=== PATIENT | male | born 1970 | race Caucasian/White ===

== ENCOUNTER 2016-09-03 08:10 | Day surgery (SDC) | payer OTHER ==
[2016-08-30 15:36] VITALS: BMI 30.5
[~2016-09-03 08:10] MED LIST: LACTATED RINGERS 1,000 ML IV SCH; LIDOCAINE 1% 20 ML VIAL (10MG/ML) FOR IV START INTRADERMA PRN
[2016-09-03 08:28] VITALS: RESP 16; TEMP 97.5
[2016-09-03] MEDS ORDERED: LIDOCAINE 1% 20 ML VIAL (10MG/ML) FOR IV START INTRADERMA ONE (08:35)
[2016-09-03] MEDS ORDERED: PROPOFOL 10 MG/ML 20 ML VIAL IV ONE (09:37)
--- NOTE | 2016-09-03 10:10 | P.PCN ---
Date of Procedure: 09/03/16 Procedure(s) Performed: Procedure: Total colonoscopy. Preoperative diagnosis: History of colon cancer. Postoperative diagnosis: S/P prior sigmoid resection, otherwise, exam to the cecum is essentially within normal limits. Preparation: HalfLytely prep. Sedation: Was provided by anesthesia. Brief clinical history: The patient is a 46-year-old male who was diagnosed in September 2012 with colon cancer. He underwent in October a laparoscopic sigmoid resection and the final pathology revealed a low-grade invasive carcinoma T1 with 1 out of 6 regional lymph nodes positive for metastatic carcinoma. The patient completed 12 cycles of chemotherapy with Dr. Gutierrez. His last colonoscopy was in August 2014 which showed a diminutive polyp in the rectum, close to the rectosigmoid junction, that proved to be a hyperplastic polyp by biopsy. At this time, he has no abdominal complaints, bleeding or anemia. No bowel issues. Procedure: With the patient on his left lateral decubitus position and after informed consent and adequate sedation, the perianal area was inspected and it did not show any fissures or fistulas. There were no masses felt on digital rectal examination. The Olympus CFQ 160L video colonoscope was then inserted in the rectum in the usual fashion and advanced to the cecum. The area of the resection and anastomosis in the distal sigmoid was noted. It appeared healthy. Overall, the mucosa appeared healthy to the cecum. There was occasional very small diverticular orifice seen around the hepatic flexure and on the right side with no evidence of acute diverticulitis or strictures. No polyps or tumors were seen. I retroflexed endoscope in the rectum before the endoscope was withdrawn. The patient tolerated the procedure well. Plan: The patient was reassured. He will follow up with you as planned and I recommended a repeat exam in 3 years.
[2016-09-03] MEDS ORDERED: ONDANSETRON 4 MG/2 ML VIAL IVP ONE (10:34)
[2016-09-03] MEDS ORDERED: LACTATED RINGERS 1,000 ML IV ONE (10:34)
[2016-09-03 10:36] VITALS: BP 130/86; PULSE 73
== END 2016-09-03 11:02 | disposition home or self-care (01) ==
LOC: ORWHC2ENDO 08:10
DX: Z12.11 Encounter for screening for malignant neoplasm of colon (principal); Z85.038 Personal history of other malignant neoplasm of large intestine; Z98.0 Intestinal bypass and anastomosis status; Z86.010 Personal history of colon polyps; Z79.82 Long term (current) use of aspirin; Z79.899 Other long term (current) drug therapy; Z88.5 Allergy status to narcotic agent; Z88.8 Allergy status to other drugs, medicaments and biological substances
CPT/HCPCS: J2704; G0105

== ENCOUNTER 2016-09-14 07:27 | Emergency (ER) | payer OTHER ==
[2016-09-14] MEDS ORDERED: Acetaminophen-Codeine 300-30mg TAB PO STA (08:20)
[2016-09-14] MEDS ORDERED: DIPH,PERTUS(ACELL)TETVAC-LF 0.5 ML VIAL IM ONE (08:22)
--- NOTE | 2016-09-14 08:24 | ED ---
Fall HPI - General Chief Complaint: Fall Stated Complaint: [facility] - fell out of trailer apx 6 foot Time Seen by Provider: 09/14/16 08:06 Source: patient, RN notes reviewed Mode of arrival: ambulatory Limitations: no limitations - History of Present Illness Initial Comments: 46-year-old male presents emergency Department chief complaint fall. 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 Patient fell on his right side. Patient complains of right rib pain and pain with deep inspiration. Patient denies abdominal pain, hip pain, back pain, neck pain, headache or dizziness. Patient states that he did hit his head and felt days but has no headache no dizziness no nausea no vomiting no blurred vision. Patient denies any leg pain below he does admit to superficial abrasion laceration to his left leg. Patient denies any upper extremity injuries. - Related Data Previous Rx's Medication Instructions Recorded Acetaminophen-Codeine 300-30mg 1 tab PO Q4H PRN #20 tablet 09/14/16 [Tylenol #3] Allergies Allergy/AdvReac Type Severity Reaction Status Date / Time ibuprofen Allergy Unknown Facial Verified 09/14/16 08:04 Swelling hydrocodone bitartrate Allergy Rash/Hives Verified 09/14/16 08:04 [From Vicodin] Review of Systems ROS Statement: Those systems with pertinent positive or pertinent negative responses have been documented in the HPI. ROS Other: All systems not noted in ROS Statement are negative. Past Medical History Past Medical History: Cancer Additional Past Medical History / Comment(s): COLON CANCER 2012 WITH 6 MONTHS CHEMO. History of Any Multi-Drug Resistant Organisms: None Reported Past Surgical History: Bowel Resection Additional Past Surgical History / Comment(s): MEDIPORT INSERTED AND REMOVED. Past Anesthesia/Blood Transfusion Reactions: No Reported Reaction Additional Past Anesthesia/Blood Transfusion Reaction / Comment(s): no hx blood transfusion Past Psychological History: No Psychological Hx Reported Smoking Status: Never smoker Past Alcohol Use History: Occasional Past Drug Use History: None Reported - Past Family History Mother Family Medical History: Cancer Additional Family Medical History / Comment(s): LUNG CA Father Additional Family Medical History / Comment(s): heart problems General Exam Limitations: no limitations General appearance: alert, in no apparent distress Head exam: Present: atraumatic, normocephalic, normal inspection Eye exam: Present: normal appearance, PERRL, EOMI. Absent: scleral icterus, conjunctival injection, periorbital swelling ENT exam: Present: normal exam, normal oropharynx, mucous membranes moist, TM's normal bilaterally, normal external ear exam Neck exam: Present: normal inspection (No abrasions no ecchymosis no step-off deformity and nontender), full ROM. Absent: tenderness, meningismus, lymphadenopathy Respiratory exam: Present: normal lung sounds bilaterally, chest wall tenderness (Right lateral to posterior rib tenderness). Absent: respiratory distress, wheezes, rales, rhonchi, stridor Cardiovascular Exam: Present: regular rate, normal rhythm, normal heart sounds. Absent: systolic murmur, diastolic murmur, rubs, gallop, clicks GI/Abdominal exam: Present: soft, normal bowel sounds. Absent: distended, tenderness, guarding, rebound, rigid Extremities exam: Present: full ROM, normal capillary refill. Absent: normal inspection (Superficial abrasions also left anterior leg/marrero region), tenderness, pedal edema, joint swelling, calf tenderness Back exam: Present: full ROM. Absent: tenderness, paraspinal tenderness, vertebral tenderness Neurological exam: Present: alert, oriented X3, CN II-XII intact Skin exam: Present: warm, dry, intact, normal color. Absent: rash Course Vital Signs 09/14/16 07:34 Temperature 96.8 F L Pulse Rate 73 Respiratory 18 Rate Blood Pressure 132/81 O2 Sat by Pulse 98 Oximetry Medical Decision Making - Medical Decision Making 46-year-old male present emergency department for fall off work truck. There is no acute fractures noted on rib series, chest x-ray. CT brain shows no acute abnormality no intracranial bleed. Patient's remaining physical exam was within normal limits. Patient did have a small abrasion to left leg in which his tetanus was updated. Patient has tolerated pain medication in the emergency department. Patient be discharged with this pain medication. Return parameters were discussed. Patient will follow-up with [facility]. Disposition Clinical Impression: Fall, Rib contusion, Head injury Disposition: HOME SELF-CARE Condition: Stable Instructions: Rib Contusion (ED), Head Injury (ED) Additional Instructions: Please return to the Emergency Department if symptoms worsen or any other concerns. Prescriptions: Acetaminophen-Codeine 300-30mg [Tylenol #3] 1 tab PO Q4H PRN #20 tablet PRN Reason: pain Time of Disposition: 08:58
--- NOTE | 2016-09-14 08:50 | CT ---
EXAMINATION TYPE: CT brain wo con DATE OF EXAM: 09/14/2016 8:44 AM COMPARISON: NONE HISTORY: Fall with contusion on occipital lobe. CT DLP: [address] of the brain was performed. The ventricles, basal cisterns and sulci overlying the cerebral convexities demonstrate a normal appe arance. There is no evidence for intracranial hemorrhage or sulcal effacement. No mass effects are seen. Osseous calvarium is intact. If symptoms persist consider MRI as clinically warranted. IMPRESSION: 1. No acute intracranial process is seen at this time.
--- NOTE | 2016-09-14 08:54 | XR ---
PA chest x-ray with right RIBS HISTORY: Trauma and pain 4 views of the right ribs, single frontal view of the chest correlated to prior chest x-ray November 2012 No displaced rib fracture. There is no pneumothorax or pleural effusion. Cardiomediastinal silhouette , pulmonary vascularity and beth are stable. Left-sided Port-A-Cath has been removed. IMPRESSION: No evident posttraumatic injury, bone scan may be of increased sensitivity as indicated.
[2016-09-14 09:31] VITALS: BP 143/88; PULSE 74; RESP 14; TEMP 97.5
== END 2016-09-14 09:31 | disposition home or self-care (01) ==
LOC: EC 07:27
DX: S20.211A Contusion of right front wall of thorax, initial encounter (principal); S80.812A Abrasion, left lower leg, initial encounter; S09.90XA Unspecified injury of head, initial encounter; Z85.038 Personal history of other malignant neoplasm of large intestine; Z88.6 Allergy status to analgesic agent; Z88.5 Allergy status to narcotic agent; Z23 Encounter for immunization; W17.89XA Other fall from one level to another, initial encounter; Y93.89 Activity, other specified
CPT/HCPCS: 70450; 90471; 90715; 99284

== ENCOUNTER → 2016-09-17 | Outpatient (CLI) | payer OTHER ==
--- NOTE | 2016-09-17 10:28 | CT ---
EXAMINATION TYPE: CT ChestAbdPelvis w con DATE OF EXAM: 09/17/2016 10:18 AM COMPARISON: CT cap September 20, 2015. HISTORY: Patient complains of low back pain at time of exam. Follow up for history of rectal CA. CT DLP: 1113.9 mGycm. Automated Exposure Control for Dose Reduction was Utilized. CONTRAST: CT scan of the thorax, abdomen and pelvis is performed with oral and with IV Contrast, patient inject ed with 100 mL of Omnipaque 300. FINDINGS: LUNGS: There is increased signal linear scarring and/or atelectasis in the right middle lobe just abo ve diaphragm. No suspicious parenchymal nodule or mass is present bilaterally. No pleural effusion or pneumothorax is seen. MEDIASTINUM: There are no greater than 1 cm hilar or mediastinal lymph nodes. No cardiomegaly or pe ricardial effusion is seen. OTHER: No additional significant abnormality is seen. LIVER/GB: No significant abnormality is appreciated. PANCREAS: No significant abnormality is seen. SPLEEN: No significant abnormality is seen. ADRENALS: No significant abnormality is seen. KIDNEYS: There is a circumaortic left renal vein which is normal variant. BOWEL: Surgical sutures are seen at level of sigmoid colon. There is no suspicious small or large bow el dilatation. Normal-appearing appendix is seen from cecum. GENITAL ORGANS: No gross abnormality seen. LYMPH NODES: No greater than 1cm abdominal or pelvic lymph nodes are appreciated. OSSEOUS STRUCTURES: Some scattered Schmorl nodes are present. Few scattered small sclerotic foci are stable and presumed benign or favor benign bone islands. OTHER: No significant additional abnormality is seen. IMPRESSION: No suspicious new mass or adenopathy is seen to suggest neoplastic recurrence.
== END ==
LOC: RADCTMAIN 09:14
PROVIDERS: ATTEND Internal Medicine Hematology & Oncology
DX: C20 Malignant neoplasm of rectum (principal)
CPT/HCPCS: 71260; 74177; Q9967

== ENCOUNTER → 2016-09-24 | Outpatient (CLI) | payer OTHER ==
--- NOTE | 2016-09-24 15:28 | XR ---
EXAMINATION TYPE: XR ribs RT DATE OF EXAM: 09/24/2016 3:08 PM COMPARISON: 09/14/2016 HISTORY: 46 year-old male with thoracic contusion with injury 10 days ago and pain. TECHNIQUE: Right rib series, 4 views FINDINGS: Either bowel gas artifact or a subtle fracture involving the posterior right 10th rib. Correlate for focal pain at this level. This is not significantly displaced. No other acute or healing fracture is seen. IMPRESSION: Either bowel gas artifact or a nondisplaced fracture of the posterior right 10th rib. Correlate for f ocal pain at this level.
== END | disposition home or self-care (01) ==
LOC: RADXRMAIN 14:56
PROVIDERS: ATTEND Emergency Medicine
DX: S20.20XA Contusion of thorax, unspecified, initial encounter (principal)

== ENCOUNTER → 2017-09-16 | Outpatient (CLI) | payer OTHER ==
--- NOTE | 2017-09-16 11:15 | CT ---
EXAMINATION TYPE: CT ChestAbdPelvis w con DATE OF EXAM: 09/16/2017 COMPARISON: 09/17/2016. 09/20/2015. HISTORY: 47-year-old male follow-up Colon cancer TECHNIQUE: Contiguous axial scanning of the chest, abdomen, and pelvis performed with IV Contrast, pa tient injected with 100 ml mL of Isovue 300. Delayed images through the kidneys were obtained. Mayer l/sagittal reconstructions performed. CT DLP: 1263.30 mGycm Automated exposure control for dose reduction was used. FINDINGS: Chest: Heart is normal size without pericardial effusion. Aorta normal caliber with conventional arch vessel branching anatomy. No thoracic lymphadenopathy. Evaluation of the lung shows no consolidation or pleural effusion. ABDOMEN: Liver is enlarged measuring 21 cm craniocaudal possibly secondary to the presence of a Edmund's lobe. Some degree of mild fatty infiltration may be present. There is a 1 cm hypervascular lesion within segment 5 of the right liver lobe. In retrospect, a 6 mm lesion was here on 09/17/2016. No definite lesion is seen on 09/20/2015. Gallbladder, adrenal glands, left kidney, spleen, and pancreas appear within normal limits. Subcentim eter hypodensity in the lateral right kidney unchanged from 2017 to small for accurate CT characteriz ation, probable cyst. Portal venous system is patent. No biliary ductal dilatation. No dilated small bowel, free fluid, or free air. Normal appendix. Mild stool burden with a prior jose rafael l resection and re-anastomosis along the proximal to mid sigmoid. No pericolonic inflammatory change. Redemonstrated are numerous nonenlarged and mildly enlarged mesenteric lymph nodes measuring up to 1 cm. These are unchanged dating back to at least 09/20/2015 suggesting a benign etiology. PELVIS: Bladder is nondistended. No abnormal fluid collection in the pelvis. Mild patulous upper canals. No p elvic lymphadenopathy. BONES: Mild degenerative changes at the hips. No osseous destructive process. IMPRESSION: 1. PRIOR RESECTION AND REANASTOMOSIS ALONG THE SIGMOID COLON. 2. NONENLARGED AND MILDLY ENLARGED MESENTERIC LYMPH NODES MEASURING UP TO 1 CM ARE STABLE DATING BACK TO AT LEAST 09/20/2015 COMPATIBLE WITH A BENIGN ETIOLOGY. LIKELY CHRONIC POSTINFLAMMATORY. 3. A 1 CM HYPERVASCULAR LESION IN SEGMENT 5 OF THE RIGHT LIVER LOBE. IN RETROSPECT, A 6 MM LESION WAS PRESENT ON 09/17/2016. NO DEFINITE LESION SEEN BACK ON 09/20/2015. THE HYPERVASCULARITY AND INDOLENT BEH AVIOR IS MORE SUGGESTIVE OF AN AREA OF VASCULAR SHUNTING OR FLASH FILLING HEMANGIOMA. COLON CANCER GE NERALLY DOES NOT PRESENT WITH HYPERVASCULAR METASTASES. CORRELATE WITH TUMOR MARKERS. CONSIDER FOLLOW -UP LIVER MRI IN 3-6 MONTHS TO REASSESS AND FOR FURTHER CHARACTERIZATION. OTHERWISE, CT FOLLOW-UP CAN BE PERFORMED. 4. HEPATOMEGALY (21 CM) POSSIBLE MILD FATTY INFILTRATION.
== END | disposition home or self-care (01) ==
LOC: RADCTMAIN 08:05
PROVIDERS: ATTEND Internal Medicine Hematology & Oncology
DX: C18.7 Malignant neoplasm of sigmoid colon (principal); R59.0 Localized enlarged lymph nodes; R16.0 Hepatomegaly, not elsewhere classified; K76.9 Liver disease, unspecified
CPT/HCPCS: 71260; 74177; Q9967

== ENCOUNTER → 2019-02-06 | Day surgery (SDC) | payer OTHER ==
[2019-02-04 11:26] VITALS: BMI 29.6
[~2019-02-06] MED LIST changes: +LACTATED RINGERS 1,000 ML IV ONE; +LIDOCAINE 1% INJ 10MG/ML (20 ML MDV) ONE; +PROPOFOL 10 MG/ML 20 ML VIAL IV ONE
[2019-02-06 09:58] VITALS: TEMP 97.8
[2019-02-06 11:08] VITALS: RESP 17
--- NOTE | 2019-02-06 11:10 | P.PCN ---
Date of Procedure: 02/06/19 Procedure(s) Performed: BRIEF HISTORY: Patient is a 47-year-old [place] [employer] male scheduled for an elective colonoscopy as a part of rectal bleeding of 1 day duration. Patient was diagnosed with sigmoid cancer in September 2014 status post endoscopic sigmoid resection. Last colonoscopy was August 2016 the was normal. Because of ongoing rectal bleeding is scheduled for colonoscopy today. PROCEDURE PERFORMED: Colonoscopy. PREOPERATIVE DIAGNOSIS: History of sigmoid cancer diagnosed September 2016/intermittent rectal bleeding. IV sedation per Anesthesia. PROCEDURE: After informed consent was obtained, the patient, was brought into the endoscopy unit. IV sedation was administered by Anesthesia under continuous monitoring. Digital rectal examination was normal. Initially the Olympus CF-160 flexible video colonoscope was then inserted in the rectum, gradually advanced into the cecum without any difficulty. Careful examination was performed as the scope was gradually being withdrawn. Ileocecal valve and the appendiceal orifice were visualized and appeared normal. Prep was excellent. Mucosa of the cecum, ascending colon, transverse colon, descending colon, and rectum appeared normal. The anastomosis was located at 25 cm from the anal verge with severe diverticulosis seen. Retroflexion was performed in the rectum and small internal hemorrhoids were seen. The patient tolerated the procedure well. IMPRESSION: Normal-appearing colon from rectum to cecum with no evidence of colorectal neoplasia Diverticulosis at the anastomosis Small internal hemorrhoids RECOMMENDATIONS: Findings of this examination were discussed with the patient as well as his family. He was advised to have a repeat colonoscopy in 3 years.
[2019-02-06 11:17] VITALS: BP 133/82; PULSE 77
== END | disposition home or self-care (01) ==
LOC: ORWHC2ENDO 09:28
PROVIDERS: ATTEND Internal Medicine Gastroenterology
DX: K62.5 Hemorrhage of anus and rectum (principal); K64.8 Other hemorrhoids; K57.30 Diverticulosis of large intestine without perforation or abscess without bleeding; Z90.49 Acquired absence of other specified parts of digestive tract; Z85.038 Personal history of other malignant neoplasm of large intestine; Z88.5 Allergy status to narcotic agent; Z88.6 Allergy status to analgesic agent; Z79.899 Other long term (current) drug therapy; Z79.1 Long term (current) use of non-steroidal anti-inflammatories (NSAID)
CPT/HCPCS: 45378; J2001; J2704